=== PATIENT | female | born 1985 | race Caucasian/White ===

== ENCOUNTER 2016-09-08 18:17 | Emergency (ER) | payer SELFPAY ==
[~2016-09-08] VITALS: Ht 162.6 cm; Wt 58.2 kg
[~2016-09-08 18:17] MED LIST: ALBUTEROL0.09 MG/A1 IH; BUPROPION100 MG PO; NAPROXEN; PROAIR HFA0.09 MG/Ac IH; SOMA; SOMA350 M1 PO; TRAMADOL HYDROC50 MG PO; VALIUM5 M1 PO; VICODIN ES 7501 TA1 PO; XANAX1 M1 PO; XANAX1 MG PO; vicodin
[2016-09-08 18:24] VITALS: BP 138/80
--- NOTE | 2016-09-08 19:31 | NUR ---
PATIENT LEFT WITHOUT BEING SEEN BY DR. THACKER. NO FURTHER CARE PROVIDED FOR PATIENT.
== END 2016-09-08 19:33 | disposition left against medical advice (07) ==
LOC: MED 18:17
DX: R10.9 Unspecified abdominal pain (principal); Z53.21 Procedure and treatment not carried out due to patient leaving prior to being seen by health care provider

== ENCOUNTER 2019-02-20 18:53 | Emergency (ER) | payer MEDICAID ==
[~2019-02-20] VITALS: Ht 160 cm; Wt 49.0 kg
[~2019-02-20 18:53] MED LIST changes: +ALBU-136 IH; +ALBU0.0939 IH; -ALBUTEROL0.09 MG/A1 IH; +BUPR100T8 PO; -BUPROPION100 MG PO; +DIAZ5TAB7 PO; -NAPROXEN; -PROAIR HFA0.09 MG/Ac IH; -SOMA; -SOMA350 M1 PO; -TRAMADOL HYDROC50 MG PO; -VALIUM5 M1 PO; -VICODIN ES 7501 TA1 PO; -XANAX1 M1 PO; -XANAX1 MG PO; -vicodin
[2019-02-20 19:04] VITALS: BP 119/83
--- NOTE | 2019-02-20 19:06 | NUR ---
PT AMBULATED TO BED
--- NOTE | 2019-02-20 19:14 | NUR ---
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 PATIENT ABLE TO MAKE FULL SENTENCES, BREATHING IS UNLABORED, NO SIGNS OF DISTRESS, DENIES PAIN. THROAT IS PINK AND NO SIGNS OF SWELLING/BLEEDING, NO APPARENT SIGNS OF OBSTRUCTED AIRWAY. BED IN LOCKED POSITION, WILL CONTINUE TO MONITOR.
--- NOTE | 2019-02-20 19:42 | NUR ---
URINE COLLECTED AND SENT TO LAB.
--- NOTE | 2019-02-20 19:55 | NUR ---
RAD AT BEDSIDE.
--- NOTE | 2019-02-20 20:44 | NUR ---
PT RETURNED FROM CT VIA WHEELCHAIR.
[2019-02-20 21:25] VITALS: BP 128/88
--- NOTE | 2019-02-20 21:30 | NUR ---
PATIENT SITTING UP IN BED, NO SIGNS OF DISTRESS, NO COMPLAINTS AT THIS TIME, VSS. WILL CONTINUE TO MONITOR.
[2019-02-20] MEDS ORDERED: AZITHROMYCIN 250 MG TAB PO ONE (21:40)
[2019-02-20] MEDS ORDERED: cefTRIAXone 250 MG in LIDOCAINE MPF 1% 0.9 ML IM ONE (21:40)
--- NOTE | 2019-02-20 21:55 | NUR ---
Patient discharged with v/s stable. Written and verbal after care instructions given by Dr. Gillespie. Patient alert, oriented and verbalized understanding of instructions. Ambulatory with steady gait. All questions addressed prior to discharge. ID band removed. Patient advised to follow up with PMD. Rx of DOXYCLYCLINE given. Patient educated on indication of medication including possible reaction and side effects. Opportunity to ask questions provided and answered.
[2019-02-23 06:07] LABS: CHLAMYDIA TRACHOMATIS AMP DNA Negative (Negative)
== END 2019-02-20 21:55 | disposition home or self-care (01) ==
LOC: MED 18:53
DX: T18.9XXA Foreign body of alimentary tract, part unspecified, initial encounter (principal); J45.909 Unspecified asthma, uncomplicated; I10 Essential (primary) hypertension; F17.210 Nicotine dependence, cigarettes, uncomplicated; Z90.49 Acquired absence of other specified parts of digestive tract; Z79.899 Other long term (current) drug therapy; Z71.6 Tobacco abuse counseling; Z20.2 Contact with and (suspected) exposure to infections with a predominantly sexual mode of transmission; X58.XXXA Exposure to other specified factors, initial encounter; Y93.89 Activity, other specified; Y92.89 Other specified places as the place of occurrence of the external cause; Y99.8 Other external cause status
CPT/HCPCS: 36415; 70490; 74018; 81025; 96372; 99284; J0696; J2001; Q0092; 87491